=== PATIENT | male | born 1955 | race Hispanic/Latino ===

== ENCOUNTER 2017-08-20 12:11 | Outpatient (CLI) | payer BC ==
[2017-08-20 13:06] LABS: Albumin 4.1 g/dL (3.9-5); Calcium 9.7 mg/dL (8.4-10.2)
== END 2017-08-20 12:12 | disposition home or self-care (01) ==
LOC: LAB 12:11
PROVIDERS: ATTEND Internal Medicine
DX: E11.65 Type 2 diabetes mellitus with hyperglycemia (principal); I10 Essential (primary) hypertension; R53.83 Other fatigue; Z87.891 Personal history of nicotine dependence
CPT/HCPCS: 36415; 80053; 83036

== ENCOUNTER 2017-11-12 17:08 | Outpatient (CLI) | payer BC ==
[2017-11-12 18:45] LABS: Basophils % (Auto) 0.5 % (0.0-1.8); Eosinophils # (Auto) 0.1 K/mm3 (0.0-0.4); Eosinophils % (Auto) 1.6 % (0.0-4.3); Hematocrit 39.2 % (35.5-45.6); Hemoglobin 13.1 gm/dl (11.8-15.2); Lymphocytes # (Auto) 2.2 K/mm3 (1.2-5.4); Lymphocytes % (Auto) 26.9 % (13.4-35.0); Mean Corpuscular HGB Conc 33 % (32-34); Mean Corpuscular Hemoglobin 30 pg (28-32); Mean Corpuscular Volume 89 fl (84-94); Monocytes # (Auto) 0.5 K/mm3 (0.0-0.8); Monocytes % (Auto) 6.5 % (0.0-7.3); Platelet Count 311 K/mm3 (140-440); Red Blood Count 4.41 M/mm3 (3.65-5.03); Red Cell Distribution Width 13.1 % (13.2-15.2)
[2017-11-12 19:10] LABS: Chol/HDL Ratio 4.32 %
== END 2017-11-12 17:09 | disposition home or self-care (01) ==
LOC: LAB 17:08
PROVIDERS: ATTEND Internal Medicine
DX: E11.65 Type 2 diabetes mellitus with hyperglycemia (principal); R53.83 Other fatigue; E78.2 Mixed hyperlipidemia; N40.1 Benign prostatic hyperplasia with lower urinary tract symptoms; I10 Essential (primary) hypertension
CPT/HCPCS: 36415; 80061; 83036; 84153; 84443; 85025

== ENCOUNTER 2018-03-13 08:26 | Outpatient (CLI) | payer BC ==
[2018-03-13 09:02] LABS: Hemoglobin 13.9 gm/dl (11.8-15.2); Mean Corpuscular HGB Conc 34 % (32-34); Mean Corpuscular Volume 88 fl (84-94); Platelet Count 317 K/mm3 (140-440); Red Blood Count 4.68 M/mm3 (3.65-5.03); Red Cell Distribution Width 13.6 % (13.2-15.2)
[2018-03-13 09:18] LABS: Calcium 9.3 mg/dL (8.4-10.2)
[2018-03-13 09:57] LABS: Chol/HDL Ratio 4.11 %
--- NOTE | 2018-03-13 23:03 | Treadmill Report ---
ORDERING PHYSICIAN: Barry Lopez MD INDICATION: Screening cardiovascular examination. FINDINGS: After obtaining written consent, the patient underwent a stress Manjit protocol. Baseline heart rate was 57 beats per minute with a baseline blood pressure of 150/77. Baseline EKG shows sinus rhythm with no ischemic findings. The patient exercised for a total of 6 minutes and 26 seconds, reaching stage 3. Maximum heart rate achieved was 150 beats per minute, which is 93% of the maximum age predicted heart rate. Maximum achieved blood pressure was 204/89. The test was stopped due to leg pain and leg cramping. There were no symptoms of limiting chest pain or shortness of breath. IMPRESSION: This is a low risk treadmill stress test with no evidence of ischemic changes or limiting chest pain or shortness of breath. JOB# [id number]/[id number]
== END 2018-03-13 08:27 | disposition home or self-care (01) ==
LOC: ECHO 08:26
PROVIDERS: ATTEND Internal Medicine Cardiovascular Disease
DX: I11.9 Hypertensive heart disease without heart failure (principal); E11.65 Type 2 diabetes mellitus with hyperglycemia; Z87.891 Personal history of nicotine dependence
CPT/HCPCS: 36415; 80053; 80061; 82306; 83036; 84153; 84443; 85027; 93017; 93306

== ENCOUNTER 2019-10-10 10:59 | Outpatient (CLI) | payer OTHER | END 2019-10-10 11:00 | disposition home or self-care (01) | LOC: CARD 10:59 | PROVIDERS: ATTEND Internal Medicine | DX: R55 Syncope and collapse (principal) | CPT/HCPCS: 93005 ==